=== PATIENT | male | born 1990 | race Caucasian/White ===

== ENCOUNTER 2021-12-31 09:05 | Emergency (ER) | payer OTHER, SELFPAY ==
--- NOTE | 2021-12-31 09:08 | PC.NURSE ---
pt ambulatory to ED room 8 from waiting room with registration tech; no complications.
--- NOTE | 2021-12-31 09:13 | PC.NURSE ---
UA sent to lab
--- NOTE | 2021-12-31 09:13 | PC.NURSE ---
pt ambulatory to restroom from ED room 8 to provide UA; back to ED room 8 without complications. Kathryn at BS to start line, Jaymie at BS for triage
[2021-12-31 09:14] VITALS: BP 150/86; PULSE 84; RESP 17; TEMP 36.6; O2SAT 99; BMI 29.6
[2021-12-31 09:16] LABS: Microscopic, Urine URINE MICROSCOPIC (MICROSCOPIC)
--- NOTE | 2021-12-31 09:20 | US_ITS ---
FINAL REPORT TECHNIQUE: Ultrasound images of the testicles were obtained bilaterally. Color Doppler images were obtained. CLINICAL HISTORY: r/o torsion FINDINGS: The right testicle measures 2.21 x 3.50 x 3.29 cm. The left testicle measures 2.05 x 3.58 x 3.40 cm. Arterial flow is identified bilaterally. There are small hydroceles bilaterally. There is a 2 mm cyst seen in the left epididymal head. IMPRESSION: No evidence of testicular torsion. Reviewed, Interpreted and Dictated by Rodrigo Leslie III, MD Transcribed by Michelle Herr Authenticated and . [facility]
[2021-12-31 09:21] LABS: Appearance,Urine CLEAR (Clear); Bilirubin,Urine Negative (Negative); Blood, Urine 3+ (Negative); Color,Urine YELLOW (Yellow); Glucose,Urine (UA) Negative (Negative); Ketones,Urine Negative (Negative); Leukocyte Esterase,Urine Negative (Negative); Nitrate,Urine Negative (Negative); Protein,Urine Negative (Negative); Specific Gravity, Urine 1.025 (1.005-1.030); Urobilinogen,Urine 0.2 EU/dl (0.2)
--- NOTE | 2021-12-31 09:22 | PC.NURSE ---
called rad for u/s
--- NOTE | 2021-12-31 09:25 | PC.NURSE ---
pt to US by wheelchair with patient care technician instructor
[2021-12-31 09:28] LABS: Chloride 102 mmol/L (98-107); Sodium 141 mmol/L (136-145)
--- NOTE | 2021-12-31 09:28 | HMH.EDGENADL ---
ED Disposition Clinical Impression: Right ureteral calculus, Nephrolithiasis Disposition: Home, Self-Care Condition on Discharge: Good Instructions: DI for Kidney Stones Additional Instructions: Flomax as prescribed. Dodson as needed for pain. Tylenol or ibuprofen for less severe pain. Zofran as needed for nausea. Additional instructions for KIDNEY STONE (URETERAL CALCULUS): See Dr. Luevano as soon as possible for further evaluation. Drink plenty of fluids. Strain your urine and save any stones you catch. Return immediately if you develop a fever or have uncontrollable vomiting or uncontrollable pain. Additional instructions for CONTROLLED SUBSTANCES: You have been prescribed a medication that is a controlled substance. Controlled substances include pain medications known as opiates and sedative nerve medications known as benzodiazepines. Tramadol, fioricet, and gabapentin are also controlled substances. Some common opiates include: Codeine (such as Tylenol #3) Hydrocodone (Vicodin, Lortab, Lorcet, Dodson) Oxycodone (Percocet, Percodan, Oxycodone, Oxy IR) Some common benzodiazepines include: Diazepam (Valium) Lorazepam (Ativan) Alprazolam (Xanax) Clonazepam (Klonopin) Oxazepam (Serax) All of these controlled substances are highly addictive and frequently abused. Misuse can and frequently does lead to addiction as well as overdose and . Medication should be stored in a locked cabinet or other secure storage unit. Do not store the medication in a motor vehicle. Short term supplies, 3 days or less, are prescribed because of the highly addictive nature of the medication. Any of the controlled substance medication NOT taken should be disposed of properly and NOT SAVED. The recommended method of disposing of unused medications is: Place the medicines in a sealable plastic bag. If the medicine is a solid, crush it or add water to dissolve it. Add something undesirable (cat litter, coffee grounds, etc.) Dispose of sealed bag in household trash Do not flush or pour unused medicines down a sink or drain. Controlled substances should not be shared, given away or sold. Because of the addictive nature and frequent abuse, these medications are sometimes stolen. These medications should be kept in a safe place where they cannot be stolen. Do not keep them in your car or purse. Lost or stolen prescriptions for controlled substances WILL NOT BE REFILLED in this emergency department, regardless of whether a police report was filed. Prescriptions: Hydrocod/Acet 5/325 mg [Dodson 5/325mg tablet] 1 tab PO Q6HP PRN #10 tab PRN Reason: Pain Transmission Status: Received by [facility] #[id number] Tamsulosin HCl [Flomax 0.4mg capsule] 0.4 mg PO HS #10 cap Transmission Status: Received by [facility] #[id number] Ondansetron [Zofran 4mg ODT] 4 mg PO TIDP PRN #10 tab PRN Reason: Nausea And Vomiting Transmission Status: Received by [facility] #[id number] Referrals: Ca Yi [Primary Care Provider] - Abiodun Luevano MD [Staff Physician] - - Critical Care Critical Care Time: No Attestation: On , the high probability of a clinically significant, sudden or life threatening deterioration of the following system(s) required my full and direct attention, intervention and personal management. The time I documented below is in addition to time spent performing reported procedures but includes the following listed in this critical care notation. Medical Decision Making - Alejandro Inquiry Pt receiving controlled substance: Yes Alejandro was queried for this patient: Yes Risks and benefits of using a controlled substance: were discussed with pt by me Vital Signs: 12/31/21 09:14 12/31/21 10:31 12/31/21 11:00 Temperature 98 F Temperature Source Oral Pulse Rate 68 67 Pulse Rate [Left Radial] 84 Respiratory Rate 17 Blood Pressure 114/61 120/61 Blood Pressure [Right Arm] 1
[2021-12-31 09:30] LABS: Alanine Aminotransferase 54 U/L (12-78); Alkaline Phosphatase 102 U/L (38-126); Aspartate Amino Transferase 54 U/L (17-59); Bilirubin,Total 0.7 mg/dl (0.2-1.3); Blood Urea Nitrogen 12 mg/dl (9-20); Creatinine Clearance Estimated 152 mL/min (50-200); Estimated Glomerular Filt Rate 100 ml/min (>60); GFR (African American) 121 ML/MIN (>60)
[2021-12-31 09:31] LABS: Albumin/Globulin Ratio 1.5 (1.1-1.8); Basophils # 0.2 K/mm3 (0-0.2); Basophils % 1.9 % (0.1-2.0); Calcium 10.2 mg/dl (8.4-10.2); Carbon Dioxide 32 mmol/L (22.0-30.0); Eosinophils # 0.1 K/mm3 (0.0-0.4); Eosinophils % 1.4 % (0.1-12.0); Globulin 3.3 g/dL (1.3-3.2); Glucose 102 mg/dl (74-100); Hematocrit 52.3 % (42.0-52.0); Lipase 117 U/L (23-300); Lymphocytes # 1.9 K/mm3 (0.7-4.5); Lymphocytes % 20.5 % (10-50); Mean Corpuscular HGB Conc 34.6 g/dL (31.8-35.4); Mean Corpuscular Hemoglobin 29.9 pg (27.0-31.2); Mean Corpuscular Volume 86.4 fl (80-94); Mean Platelet Volume 8.6 fl (7.4-10.4); Monocytes # 0.5 K/mm3 (0.1-1.0); Monocytes % 5.1 % (1.7-9.3); Neutrophils # 6.6 K/mm3 (1.8-7.8); Neutrophils % 71.1 % (37.0-80.0); Platelet Count 231 K/mm3 (142-424); Red Blood Count 6.05 M/mm3 (4.60-6.20); Red Cell Distribution Width 13.8 % (11.5-17.5); Total Protein,Serum 8.3 g/dl (6.3-8.2); White Blood Count 9.2 K/mm3 (4.8-10.8)
[2021-12-31 09:36] LABS: Bacteria,Urine Trace /lpf; WBC,Urine Occasional #/hpf (0-3)
[2021-12-31 09:41] LABS: Hemoglobin 18.1 g/dL (14.1-18.0)
--- NOTE | 2021-12-31 09:48 | PC.NURSE ---
pt back from US by wheelchair with crop and soil technician
--- NOTE | 2021-12-31 09:49 | PC.NURSE ---
WHITNEY STRONG at speaking with patient
--- NOTE | 2021-12-31 09:54 | CT_ITS ---
FINAL REPORT CLINICAL HISTORY: R sided abdo pain, hematuria FINDINGS: Axial CT images of the abdomen and pelvis were obtained without intravenous contrast. Coronal reformatted images were also obtained.This study was performed with techniques to keep radiation doses as low as reasonably achievable (ALARA). Individualized dose reduction techniques using automated exposure control or adjustment of mA and/or kV according to the patient's size were employed. Abdomen: The lung bases are clear. There is a single less than 3 mm nonobstructing right renal stone. The gallbladder is present. The liver, spleen and pancreas have an unremarkable, unenhanced appearance. No mass or adenopathy is seen. No inflammatory process is identified. Pelvis: The appendix appears normal. There is mild right hydronephrosis secondary to a 7 mm proximal right ureteral stone at the L4 level. No mass is identified. IMPRESSION: Single less than 3 mm nonobstructing right renal stone. Mild right hydronephrosis secondary to a 7 mm proximal right ureteral stone. Reviewed, Interpreted and Dictated by Rodrigo Leslie III, MD Transcribed by Meri Rose Authenticated and '[facility]
--- NOTE | 2021-12-31 10:00 | PC.NURSE ---
rad called for ct
--- NOTE | 2021-12-31 10:07 | PC.NURSE ---
pt to CT with soldering technician by wheelchair
[2021-12-31 10:31] VITALS: BP 114/61; PULSE 68; O2SAT 96
--- NOTE | 2021-12-31 10:47 | PC.NURSE ---
pt returned from CT
[2021-12-31 11:00] VITALS: BP 120/61; PULSE 67; O2SAT 99
--- NOTE | 2021-12-31 11:35 | PC.NURSE ---
STRAINER AND URINE CUP GIVEN INSTRUCTED ON USE
[2021-12-31 11:36] VITALS: BP 132/74; PULSE 78; RESP 16; TEMP 36.6; O2SAT 98
== END 2021-12-31 11:37 | disposition home or self-care (01) ==
PROVIDERS: Emergency Provider Emergency Medicine; PCP Pediatrics
DX: N13.2 Hydronephrosis with renal and ureteral calculous obstruction (principal); N50.811 Right testicular pain
CPT/HCPCS: 74176; 76870; 80053; 81001; 83690; 85025; 96361; 96374; 99284

== ENCOUNTER 2024-02-02 07:59 | Emergency (ER) | payer OTHER, SELFPAY ==
--- OUTSIDE RECORDS SUMMARY | 2024-02-02 08:05 | XMS_ITS | Referral Summary ---
Author Name Unknown Organization [facility] Address [address], [place] [address] Care Team Providers Care Harness Preparer Name Role Phone NO PCP, PT STATES Primary Care Physician Unavail able Encounter 02/02/22 - 02/02/22 [facility] [address] [place] [address] Encounter Diagnosis Urinary tract infection(Discharge Diagnosis) - 02/02/22 Constipation(Discharge Diagnosis) - 02/02/22 Discharge Disposition: 01-Home or Self Care Attending Physician: Dm Curtis DO Admitting Physician: Dm Curtis DO Vital Signs Most recent to oldest [Reference Range]: 1 Temperature Oral [35.8-37.3 degC] 36.6 d egC (02/02/22 10:11 PM) Peripheral Pulse Rate [60-100 bpm] 78 bp m (02/02/22 11:27 PM) Respiratory Rate [14-20 br/min] 16 br/mi n (02/02/22 11:27 PM) Blood Pressure [90-140/60-90 mmHg] 147/9 7mmHg *HI* (02/02/22 11:27 PM) SpO2 99 % (02/02/22 11:27 PM) Problem List Condition Effective Dates Status Health Status Inform ant Kidney stone(Confirmed) Active p atient Allergies, Adverse Reactions, Alerts No Known Medication Allergies Medications ibuprofen 800 mg oral tablet 800 mg 1 tabs, Oral, q8hr, as needed for pain, # 12 tabs, 0 Refill(s), Pharmacy: [facility] #[id number], 1 tabs Oral q8hr,PRN:as needed for pain Start Date: 02/02/22 Status: Ordered Keflex 500 mg oral capsule 500 mg 1 caps, Oral, q12hr, # 14 caps, 0 Refill(s), Pharmacy: [facility] #[id number], 1 caps Oral q12hr Start Date: 02/02/22 Status: Ordered MiraLax oral powder for reconstitution 17 g, Oral, Daily, dissolve in water before taking, # 527 g, 0 Refill(s), Pharmacy: [facility] #[id number] Start Date: 02/02/22 Status: Ordered nitrofurantoin macrocrystals-monohydrate 100 mg oral capsule 0 Refill(s) Start Date: 02/02/22 Status: Ordered oxybutynin 5 mg/24 hours oral tablet, extended release 0 Refill(s) Start Date: 02/02/22 Status: Ordered phenazopyridine 100 mg oral tablet 0 Refill(s) Start Date: 02/02/22 Status: Ordered tamsulosin 0.4 mg oral capsule 0 Refill(s) Start Date: 02/02/22 Status: Ordered Results Most recent to oldest [Reference Range]: 1 UA Color [Yellow] Yellow (02/02/22 10:09 PM) UA WBC [0-1 /HPF] 5-10 /HPF *ABN* (02/02/22 10:09 PM) UA Urobilinogen [0.2 mg/dL] 0.2 mg/dL (02/02/22 10:09 PM) UA Bili [Negative] Negative (02/02/22 10:09 PM) UA Ketones [Negative mg/dL] Negative mg/ dL (02/02/22 10:09 PM) UA RBC [0-1 /HPF] 5-10 /HPF *ABN* (02/02/22 10:09 PM) UA Leuk Est [Negative] Negative (02/02/22 10:09 PM) UA Nitrite [Negative] Negative (02/02/22 10:09 PM) UA Glucose [Negative mg/dL] Negative mg/ dL (02/02/22 10:09 PM) UA Bacteria [None Seen /HPF] 2+ /HPF *ABN* (02/02/22 10:09 PM) UA Protein [Negative mg/dL] 100 mg/dL *ABN* (02/02/22 10:09 PM) UA Blood [Negative] Trace-intact *ABN* (02/02/22 10:09 PM) UA Mucous [None Seen /LPF] 3+ /LPF *ABN* (02/02/22 10:09 PM) UA Spec Grav [1.000-1.029] >=1.030 *ABN* (02/02/22 10:09 PM) UA Squam Epithelial [None Seen /HPF] Rar e /HPF (02/02/22 10:09 PM) UA pH [5.0-8.0] 6.0 (02/02/22 10:09 PM) UA Appear [Clear] Clear (02/02/22 10:09 PM) Procedures Procedure Date Related Diagnosis Body Site Status Stent removal 01/27/22 Completed Stent placement 01/22/22 Completed Lithotripsy of kidney Com pleted Social History Social History Type Response Smoking Status Never (less than 100 in lifetime) entered on: 02/02/22 Functional Status FUNCTIONAL 02/02/22 Sensory Deficits None COGNITIVE 02/02/22 Level of Consciousness Alert Orientation Assessment Oriented x 4 Affect/Behavior Appropriate, Calm, Cooperative Hospital Discharge Instructions Patient Education Constipation, Adult High-Fiber Diet Urinary Tract Infection, Adult Follow Up Care 02/02/2022 22:46:19 With:[facility] Address: [address] [place] [id number] [phone] Business (1) When:1 to 2 days With:PT STATES NO PCP Address:Unknown When:1 to 2 days
[2024-02-02 08:10] VITALS: BP 129/78; PULSE 67; RESP 20; TEMP 36.7; O2SAT 97; BMI 33.2
--- NOTE | 2024-02-02 08:29 | EXP.UTC ---
Discharge Plan Disposition Patient Disposition: Home, Self-Care Condition: Good Prescriptions Prescriptions: New oewfiefxyfrmihj-vtvrqeovh-IL [Bromfed DM] 2-30-10 mg/5 mL Syrup 5 ml PO Q6H PRN (Reason: Cough) Qty: 240 0RF ondansetron 4 mg Tablet,Disintegrating 4 mg PO Q8H PRN (Reason: Nausea) Qty: 12 0RF Referrals Follow up/Referrals: Kiya West MD [Primary Care Provider] - See instructions Activity Restrictions/Add. Instructions Additional Instructions/Restrictions: Drink plenty of fluids. Take tylenol or ibuprofen for pain or fever. Take the medications as directed. Follow up with your regular doctor. GO TO THE ER FOR ANY WORSENING SYMPTOMS Clinical Impressions Clinical Impression: Acute viral syndrome, Exposure to 2019 novel coronavirus Stand Alone Forms Stand Alone Forms: Work/School Release Instructions Patient Instructions: Coronavirus Disease 2019, Preventing the Spread of Coronavirus Discharge Instructions Discharge ED Provider: Maico Rivera [facility] General Stated complaint: cough, sore throat Mode of Arrival: Ambulatory Source of Information: Patient Limitations: No Limitations Time Seen by Provider: 02/02/24 08:29 Description of Symptoms (Recalled from Triage Doc. by RN): PATIENT C/O SORE THROAT THAT STARTED YESTERDAY. HE REPORTS RECENTLY BEING EXPOSED TO COVID. HEENT Symptoms (Recalled from RN notes): Yes Resp Symptoms (Recalled from RN notes): No Skin Symptoms (Recalled from RN notes): No MS Symptoms (Recalled from RN notes): No Functional Status (Recalled from RN notes): wnl History of Present Illness Provider Complaint: He states that for the past 2 days he has had sore throat, low grade fever and malaise. His has covid-19. Related Data Previous Rx's Medication Instructions Recorded zpvomipqimuehqg-kgdghascbdratye-ZP 5 ml PO Q6H PRN Cough #240 mL 02/02/24 2 mg-30 mg-10 mg/5 mL oral syrup (Bromfed DM) ondansetron 4 mg disintegrating 4 mg PO Q8H PRN Nausea #12 tabs 02/02/24 tablet Allergies Allergy/AdvReac Type Severity Reaction Status Date / Time No Known Allergies Allergy Verified 12/31/21 09:19 Worker's Comp Is this a Worker's Comp case?: No [facility] Disclaimer: The information contained in this section may have been updated after the patient was seen, as this information can be updated by other users. Medical History (Updated 02/02/24 @ 08:53 by Maico Rivera APRN) Kidney stone Surgical History (Updated 02/02/24 @ 08:27 by Nohemi Taylor RN) History of tympanostomy tube placement History of tonsillectomy Social History Smoking Status: Never smoker alcohol intake: never current occupational status: employed Travel in the last 8 weeks: None ROS Obtained: Yes All systems reviewed & no additional complaints except as documented Constitutional Constitutional: Reports chills and Reports fever(s) Eyes Eyes: Denies eye discharge ENT Ears, Nose, Mouth, and Throat: Reports as per HPI Cardiovascular Cardiovascular: Denies chest pain Respiratory Respiratory: Denies chest congestion and Reports cough Gastrointestinal Gastrointestingal: Reports nausea; Denies abdominal pain, constipation, cramping, diarrhea or vomiting Musculoskeletal Musculoskeletal: Denies arthralgias Integumentary/Breasts Skin/Breast: Denies rash Neurologic Neurologic: Denies paresthesias Physical Exam General General appearance: alert and in no apparent distress Eye Eye exam: Present normal appearance, PERRL and EOMI ENT ENT exam: Present mucous membranes moist and normal external ear exam Expanded ENT Exam External ear exam: Present normal external inspection TM/Canal exam: Bilateral TM: erythema and bulging Nose exam: Absent sinus tenderness Nasal speculum exam: Bilateral: normal Mouth exam: Present normal external inspection; Absent drooling Teeth exam: Present normal inspection Throat exam: Present tonsillar erythema and tonsillomegaly Neck Neck exam: Present normal inspection, full ROM and trachea midline; Absent tenderness, lymphadenopathy or thyromegaly Chest Chest inspection: Present normal inspection and symmetric chest wall rise; Absent tenderness or rash Respiratory Respiratory exam: Present normal lung sounds bilaterally; Absent respiratory distress, wheezes, stridor or accessory muscle use Cardiovascular Cardiovascular exam: Present regular rate, normal rhythm and normal heart sounds Abdominal Exam Abdominal exam: Present soft; Absent distention, tenderness, guarding, rebound or rigidity Extremities Exam Extremities exam: Present normal inspection, full ROM and normal capillary refill; Absent tenderness or calf tenderness Back Exam Back exam: Present normal inspection and full ROM; Absent tenderness Neurological Exam Neurological exam: Present alert and oriented X3 Psychiatric Psychiatric exam: Present normal affect and normal mood Skin Skin exam: Present warm, dry, intact and normal color Lymphatic Lymphatic Findings: no adenopathy Medical Decision Making Medical Records Medical records reviewed: No I reviewed the patient's medical records. Alejandro Inquiry Pt receiving controlled substance: No Vital Signs: 02/02/24 08:10 Temperature 98.1 F Temperature Source Oral Pulse Rate [Left Brachial] 67 Respiratory Rate 20 Blood Pressure [Left Arm] 129/78 Blood Pressure Mean [Left Arm] 95 Blood Pressure Source [Left Arm] Automatic Cuff Blood Pressure Position [Left Arm] Sitting 02 Sat by Pulse Oximetry 97 Oxygen Delivery Method Room Air Lab Data Lab results reviewed: Yes I reviewed the patient's lab results. Orders (Tests/Meds): ORDERS Category Date Time Status Covid-19 Nasal PCR ([facility]) Routine Lab 02/02/24 08:24 Ordered
[2024-02-02 08:31] LABS: UTC Strep Screen (Rapid) Negative (Negative)
[2024-02-02 08:54] VITALS: BP 129/78; PULSE 67; RESP 20; TEMP 36.7; O2SAT 97
== END 2024-02-02 08:58 | disposition home or self-care (01) ==
PROVIDERS: Emergency Provider Nurse Practitioner Family; PCP Internal Medicine
DX: U07.1 COVID-19 (principal); R50.9 Fever, unspecified; R07.0 Pain in throat; R53.83 Other fatigue; R05.9 Cough, unspecified
CPT/HCPCS: 87635; 87880; 99204; 99212; G0463

== ENCOUNTER 2024-04-24 15:04 | Emergency (ER) | payer OTHER, SELFPAY ==
[2024-04-24 15:19] VITALS: BP 132/82; PULSE 97; RESP 16; TEMP 36.9; O2SAT 98; BMI 29.7
--- NOTE | 2024-04-24 15:22 | ED_ITS ---
Discharge Plan Disposition Patient Disposition: Home, Self-Care Condition: Good Prescriptions Prescriptions: New amoxicillin 500 mg capsule 500 mg PO BID 10 Days Qty: 20 0RF No Action nhnrhgiyqweoeac-jgooklsww-KL [Bromfed DM] 2-30-10 mg/5 mL Syrup 5 ml PO Q6H PRN (Reason: Cough) Qty: 240 0RF ondansetron 4 mg Tablet,Disintegrating 4 mg PO Q8H PRN (Reason: Nausea) Qty: 12 0RF Referrals Follow up/Referrals: Kiya West MD [Primary Care Provider] - See instructions Activity Restrictions/Add. Instructions Additional Instructions/Restrictions: *Monitor Temp, Over the counter Motrin or Tylenol as directed/as needed Tylenol every 4 hours and Motrin every 6 hours (as long as your family doctor has told you that you can take it) for fever or pain. and straight to ER if unable to lower temp less than 101.0 after medication given *Warm salt water gargles may help to soothe the throat *Throat Lozenges? *Warm fluids like tea with honey may help to soothe the throat? *Sleep elevated *Humidifier/Vaporizer *If you did not take Penicillin shot or was unable to, start taking antibiotic immediately and make sure that you take it for the FULL length of time although you should start to feel better in 24-48 hours *change toothbrush and toothpaste 24-48 hours after starting to take antibiotics so you do not reinfect yourself Monitor Temp. Tylenol and/or Ibuprofen as needed. ER if fever is no less than 101 despite alternating Tylenol and Ibuprofen * Encourage fluids, water, Gatorade, powerade, pedialyte if infant/toddler/or child *Cold fluids, popsicles and ice cream may feel good on his throat Follow up IMMEDIATELY for new or worsening symptoms or no Noticeable improvement over the next 48-72 hours. 911 for difficulty breathing or swallowing Clinical Impressions Clinical Impression: Strep throat Instructions Patient Instructions: DI for Strep Throat, Strep Throat Print Language Print Language: Vietnamese Discharge ED Provider: Stella Valentin [facility] HPI General Stated complaint: sore throat, hiral Mode of Arrival: Ambulatory Source of Information: Patient Limitations: No Limitations Time Seen by Provider: 04/24/24 15:22 Description of Symptoms (Recalled from Triage Doc. by RN): Patient reports sore throat, congestion and body aches. HEENT Symptoms (Recalled from RN notes): Yes Resp Symptoms (Recalled from RN notes): No Skin Symptoms (Recalled from RN notes): No MS Symptoms (Recalled from RN notes): No Functional Status (Recalled from RN notes): wnl History of Present Illness Provider Complaint: Patient states that he was recently exposed to strep throat States that he has been having sore throat, feeling achy and nasal congestion states today his throat was bothering him worse so he came in to get checked Related Data Previous Rx's ?Medication ?Instructions ?Recorded gspubttfwfmffhd-xokocoqkgqlgolx-IX 5 ml PO Q6H PRN Cough #240 mL 02/02/24 2 mg-30 mg-10 mg/5 mL oral syrup (Bromfed DM) ondansetron 4 mg disintegrating 4 mg PO Q8H PRN Nausea #12 tabs 02/02/24 tablet amoxicillin 500 mg capsule 500 mg PO BID 10 days #20 caps 04/24/24 Allergies Allergy/AdvReac Type Severity Reaction Status Date / Time No Known Allergies Allergy Verified 12/31/21 09:19 Worker's Comp Is this a Worker's Comp case?: No [facility] Disclaimer: The information contained in this section may have been updated after the patient was seen, as this information can be updated by other users. Medical History (Updated 04/24/24 @ 15:25 by Stella Valentin APRN) Kidney stone Surgical History (Updated 02/02/24 @ 08:27 by Nohemi Taylor RN) History of tympanostomy tube placement History of tonsillectomy Social History (Updated 02/02/24 @ 09:25 by Maico Rivera APRN) Smoking Status: Never smoker alcohol intake: never current occupational status: employed Travel in the last 8 weeks: None ROS Obtained: Yes All systems reviewed & no additional complaints except as documented and Yes Systems reviewed as appropriate & no additional complaints except as documented Constitutional Constitutional: Reports system reviewed and no additional complaints, except as documented, Reports as per HPI and Reports body ache ENT Ears, Nose, Mouth, and Throat: Reports system reviewed and no additional complaints, except as documented, Reports as per HPI, Reports nasal congestion, Reports nasal discharge and Reports sore throat Cardiovascular Cardiovascular: Reports system reviewed and no additional complaints, except as documented and Reports as per HPI Respiratory Respiratory: Reports system reviewed and no additional complaints, except as documented and Reports as per HPI Gastrointestinal Gastrointestingal: Reports system reviewed and no additional complaints, except as documented and as per HPI Musculoskeletal Musculoskeletal: Reports system reviewed and no additional complaints, except as documented and Reports as per HPI Physical Exam General General appearance: alert and in no apparent distress ENT ENT exam: Present mucous membranes moist Expanded ENT Exam Throat exam: Present other (Pharyngeal erythema noted ) Respiratory Respiratory exam: Present normal lung sounds bilaterally; Absent respiratory distress or wheezes Cardiovascular Cardiovascular exam: Present regular rate, normal rhythm and normal heart sounds Neurological Exam Neurological exam: Present alert, oriented X3 and normal gait Medical Decision Making Medical Records Screening: Per USPSTF and CDC recommendations, given the prevalence of disease in our region, it is our hospital?s policy to screen for HIV and viral Hepatitis for all patients aged 18 and over and those with ongoing risk factors. Alejandro Inquiry Pt receiving controlled substance: No Alejandro was queried for this patient: No Vital Signs: 04/24/24 15:19 Temperature 98.4 F Temperature Source Oral Pulse Rate [Radial] 97 H Respiratory Rate 16 Blood Pressure [Right Arm] 132/82 Blood Pressure Mean [Right Arm] 98 Blood Pressure Source [Right Arm] Automatic Cuff Blood Pressure Position [Right Arm] Sitting 02 Sat by Pulse Oximetry 98 Oxygen Delivery Method Room Air Lab Data Lab results reviewed: Yes I reviewed the patient's lab results.
[2024-04-24 15:23] LABS: UTC Strep Screen (Rapid) Positive (Negative)
[2024-04-24 15:28] VITALS: BP 132/82; PULSE 97; RESP 16; TEMP 36.9; O2SAT 98
== END 2024-04-24 15:30 | disposition home or self-care (01) ==
PROVIDERS: Emergency Provider Nurse Practitioner; PCP Internal Medicine
DX: J02.0 Streptococcal pharyngitis (principal)
CPT/HCPCS: 87880; 99213; G0381

== ENCOUNTER 2024-09-30 07:00 | Emergency (ER) | payer OTHER, SELFPAY ==
[2024-09-30] VITALS (8 sets, daily range): BP systolic 90–136; BP diastolic 45–89; PULSE 62–90; RESP 16–18; TEMP 36.6–37.1; O2SAT 96–100; BMI 32.1
--- NOTE | 2024-09-30 07:31 | XR_ITS ---
PROCEDURE INFORMATION: Exam: XR Left Hip Exam date and time: 09/30/2024 8:00 AM Age: 34 years old Clinical indication: Hip pain; Left hip; Additional info: Hip pain, no known trauma, recent chiropractor appointment for hip adjustment last week TECHNIQUE: Imaging protocol: Radiologic exam of the left hip. Views: 2 or 3 views hip with pelvis when performed. COMPARISON: No relevant prior studies available. FINDINGS: Bones/joints: Subchondral cyst formation in the lateral left acetabulum. This may indicate degenerative changes. Pathologic fracture through the subchondral cyst can not be ruled out. If this is suspected, recommend CT. No femoral neck fracture.. Soft tissues: Unremarkable. IMPRESSION: 1. Subchondral cyst formation in the lateral left acetabulum. This may indicate degenerative changes. Pathologic fracture through the subchondral cyst can not be ruled out. If this is suspected, recommend CT. 2. No femoral neck fracture..
--- NOTE | 2024-09-30 07:31 | XR_ITS ---
PROCEDURE INFORMATION: Exam: XR Left Knee Exam date and time: 09/30/2024 8:03 AM Age: 34 years old Clinical indication: Pain; Hip; Left; Additional info: Hip pain TECHNIQUE: Imaging protocol: Radiologic exam of the left knee. Views: 3 views. COMPARISON: CR XR FEMUR LT 2V 09/30/2024 8:01 AM FINDINGS: Bones/joints: Joint space narrowing in the patellofemoral joint may indicate early degenerative changes. There is no evidence of acute fracture.There is no evidence of malalignment or dislocation. Well corticated ossific fragment in the region of the tibial tubercle may represent unhealed avulsion fracture Soft tissues: Normal. IMPRESSION: 1. Joint space narrowing in the patellofemoral joint may indicate early degenerative changes. 2. There is no evidence of acute fracture.There is no evidence of malalignment or dislocation.
--- NOTE | 2024-09-30 07:31 | XR_ITS ---
PROCEDURE INFORMATION: Exam: XR Left Femur Exam date and time: 09/30/2024 8:01 AM Age: 34 years old Clinical indication: Pain; Hip; Left; Additional info: Hip pain TECHNIQUE: Imaging protocol: Radiologic exam of the left femur. Views: 2 views. COMPARISON: CR XR FEMUR LT 2V 09/30/2024 8:01 AM FINDINGS: Bones/joints: Subchondral cyst formation in the lateral aspect of the left acetabulum. If a pathologic fracture is suspected through this lesion, recommend CT. Soft tissues: Unremarkable. IMPRESSION: Subchondral cyst formation in the lateral aspect of the left acetabulum. If a pathologic fracture is suspected through this lesion, recommend CT.
[2024-09-30] MEDS: diazePAM 5MG TABLET 5 MG PO (07:49)
[2024-09-30] MEDS: DEXAMETHASONE 4MG/ML 1ML VIAL 10 MG IM (07:56)
--- NOTE | 2024-09-30 08:08 | HMH.EDGENADL ---
Discharge Plan Disposition Patient Disposition: Home, Self-Care Condition: Good Prescriptions Prescriptions: New hydrocodone-acetaminophen 5-325 mg tablet 1 tab PO Q8H PRN (Reason: pain) Qty: 12 0RF No Action amoxicillin 500 mg capsule 500 mg PO BID 10 Days Qty: 20 0RF [id number]-[id number] [Bromfed DM] 2-30-10 mg/5 mL Syrup 5 ml PO Q6H PRN (Reason: Cough) Qty: 240 0RF ondansetron 4 mg Tablet,Disintegrating 4 mg PO Q8H PRN (Reason: Nausea) Qty: 12 0RF Referrals Follow up/Referrals: Kiya West MD [Primary Care Provider] - See instructions Flavio Matute DO [Staff Physician] - See instructions Activity Restrictions/Add. Instructions Additional Instructions/Restrictions: You were evaluated in the emergency department today. Your CT scan demonstrates a possible fracture through the acetabulum. I recommend limited weightbearing using crutches to offload weight from your left leg for the next 6 to 8 weeks or until you are instructed otherwise by orthopedics. [employer]atto[employer] supervisor your prescription for pain medication and take as needed for severe pain. It contains acetaminophen, so make sure you are not taking additional Tylenol with this. If you can get by without this medication, take Tylenol and ibuprofen every 4-6 hours as needed instead. Return to the emergency department for new or worsening symptoms. Clinical Impressions Clinical Impression: Closed fracture of anterior column of acetabulum, Subchondral bone cyst Stand Alone Forms Stand Alone Forms: Work/School Release Instructions Patient Instructions: DI for Pelvic Fracture Print Language Print Language: Hungarian Discharge ED Provider: Abbey Kyle General Adult HPI General Chief complaint: PAIN Stated complaint: L hip pain Time Seen by Provider: 09/30/24 07:29 Mode of Arrival: Ambulatory Source of Information: Patient Description of Symptoms (Recalled from ER Triage Doc. by RN): pt presents to ED with c/o left hip pain. pt went to chiropractor last week, had hip adjustments. left hip pain worsening over the past three days. History of Present Illness HPI narrative: This patient is a 34-year-old male who denies significant past medical history presenting to the emergency department for evaluation with concern for left hip pain. Patient states that he has pain deep within his left hip joint that is always present at rest, but way worse with movement. He notes this been going on for 5 or 6 days and so he saw a chiropractor, but now the pain is much worse after treatment. He notes that he was unable to sleep or even get up out of bed, having to roll out of bed instead of getting up to stand. He denies any radiation of pain. He also denies any fevers, chills, abdominal pain, nausea, vomiting, changes in bowel movements, urinary symptoms, or other concerns. No numbness or tingling, no calf pain/swelling. He notes that he had been going to the gym but stopped once he started having this pain. He cannot think of any specific inciting injuries. Related Data Previous Rx's ?Medication ?Instructions ?Recorded [id number]-nuwqdwptdzakfcf-RP 5 ml PO Q6H PRN Cough #240 mL 02/02/24 2 mg-30 mg-10 mg/5 mL oral syrup (Bromfed DM) ondansetron 4 mg disintegrating 4 mg PO Q8H PRN Nausea #12 tabs 02/02/24 tablet amoxicillin 500 mg capsule 500 mg PO BID 10 days #20 caps 04/24/24 hydrocodone 5 mg-acetaminophen 325 1 tab PO Q8H PRN pain #12 tabs 09/30/ mg tablet Allergies Allergy/AdvReac Type Severity Reaction Status Date / Time No Known Allergies Allergy Verified 12/31/21 09:19 [facility] Disclaimer: The information contained in this section may have been updated after the patient was seen, as this information can be updated by other users. Medical History Kidney stone Surgical History History of tympanostomy tube placement History of tonsillectomy Social History Smoking Status: Never smoker alcohol intake: never current occupational status: employed Travel in the last 8 weeks: None Have you lived/traveled outside [place] in past 30 days?: No Contact w/someone who lives/traveled outside US past 30 days?: No Exposure to someone with infectious disease in past 14 days?: No Do you have a fever (greater than 100.4 F or 38 C)?: No Have you tested positive for COVID-19: No Exposed to someone with COVID-19 in past 14 days?: No Do you have a sore throat?: No Do you have a cough?: No Do you have any weakness?: No Do you have any diarrhea?: No Are you experiencing any unusual bleeding?: No Do you have any muscle aches/pain?: No Do you have any abdominal pain?: No Are you experiencing loss of taste or smell?: No Other Medical History Have you received the Flu Vaccine for this season: Yes Have you received the Pneumonia Vaccine: No ROS Obtained: Yes All systems reviewed & no additional complaints except as documented Physical Exam General General appearance: alert and in no apparent distress Head Head exam: atraumatic and normocephalic Eye Eye exam: Present normal appearance, PERRL and EOMI ENT ENT exam: Present normal exam, normal oropharynx, mucous membranes moist and normal external ear exam Neck Neck exam: Present normal inspection, full ROM and trachea midline; Absent tenderness Chest Chest inspection: Present normal inspection and symmetric chest wall rise; Absent tenderness Respiratory Respiratory exam: Present normal lung sounds bilaterally; Absent respiratory distress, wheezes, stridor or accessory muscle use Cardiovascular Cardiovascular exam: Present regular rate and normal rhythm Abdominal Exam Abdominal exam: Present soft; Absent distention, tenderness, guarding, rebound or rigidity Extremities Exam Extremities exam: Present normal capillary refill and other (Pain with range of motion of the left hip joint. No superficial tenderness to palpation, he states the pain is deeper within his joint. Neurovascularly intact distally with no significant swelling of the left lower extremity.); Absent full ROM or edema Back Exam Back exam: Present normal inspection and full ROM; Absent tenderness Neurological Exam Neurological exam: Present alert, oriented X3, CN II-XII intact and normal gait; Absent motor sensory deficit Psychiatric Psychiatric exam: Present normal affect and normal mood Skin Skin exam: Present warm and dry Medical Decision Making Medical Records Medical records reviewed: Yes I reviewed the patient's medical records. Screening: Per USPSTF and CDC recommendations, given the prevalence of disease in our region, it is our hospital?s policy to screen for HIV and viral Hepatitis for all patients aged 18 and over and those with ongoing risk factors. Alejandro Inquiry Pt receiving controlled substance: Yes Alejandro was queried for this patient: Yes Risks and benefits of using a controlled substance: were discussed with pt by me Vital Signs: 09/30/24 07:08 09/30/24 07:31 09/30/24 07:36 Temperature 98.7 F Temperature Source Oral Pulse Rate 90 82 Pulse Rate [Left Radial] 87 Respiratory Rate 16 Blood Pressure 136/89 124/78 Blood Pressure [Right Arm] 136/89 Blood Pressure Mean Blood Pressure Mean [Right Arm] 104 Blood Pressure Source [Right Arm] Automatic Cuff Blood Pressure Position [Right Arm] Supine 02 Sat by Pulse Oximetry 98 97 98 Oxygen Delivery Method Room Air 09/30/24 08:30 09/30/24 08:44 09/30/24 09:30 Temperature Temperature Source Pulse Rate 78 82 62 Pulse Rate [Left Radial] Respiratory Rate Blood Pressure 106/56 L 111/64 90/45 L Blood Pressure [Right Arm] Blood Pressure Mean 60 Blood Pressure Mean [Right Arm] Blood Pressure Source [Right Arm] Blood Pressure Position [Right Arm] 02 Sat by Pulse Oximetry 98 96 98 Oxygen Delivery Method Room Air Room Air Room Air 09/30/24 10:18 09/30/24 11:37 Temperature 97.9 F Temperature Source Oral Pulse Rate 71 88 Pulse Rate [Left Radial] Respiratory Rate 18 Blood Pressure 110/72 132/84 Blood Pressure [Right Arm] Blood Pressure Mean Blood Pressure Mean [Right Arm] Blood Pressure Source [Right Arm] Blood Pressure Position [Right Arm] 02 Sat by Pulse Oximetry 97 Oxygen Delivery Method Lab Data Lab results reviewed: Yes I reviewed the patient's lab results. Orders (Tests/Meds): ED MEDICATIONS Discontinued Medications Generic Name Dose Route Start Last Admin Trade Name Freq PRN Reason Stop Dose Admin Dexamethasone Sodium Phosphate 10 mg 09/30/24 07:30 09/30/24 07:56 Dexamethasone 4mg/Ml 1ml Vial IM 09/30/24 07:31 10 mg ONCE ONE Administration Diazepam 5 mg 09/30/24 07:30 09/30/24 07:49 Diazepam 5mg Tablet PO 09/30/24 07:31 5 mg ONCE ONE Administration ORDERS Category Date Time Status CT bony pelvis Stat Cat Scan 09/30/24 10:[address] femur LT wo con Stat Cat Scan 09/30/24 10:13 Completed Femur XR left 2 views [XR femur LT 2V] Stat Exams 09/30/24 07:31 Completed Hip XR left minimum 2 views [XR hip LT 2-3V w/pelvis] Exams 09/30/24 07:31 Completed Stat Knee XR left 3 views [XR knee LT 3V] Stat Exams 09/30/24 07:31 Completed Medical Decision Narrative: In summary, this patient is a 34-year-old male presenting to the Emergency Department for evaluation of left hip pain. Differential diagnoses considered include but are not limited to avascular necrosis, fracture, musculoskeletal strain/sprain, psoas syndrome, intra-abdominal pathology such as diverticulitis. Ruling out the most morbid conditions drove assessment. On exam, the patient is lying in bed in no acute distress. Abdominal exam is completely benign with no tenderness, rebound, or guarding. He has no complaints of abdominal pain. He has pain with range of motion of the left hip that is worse with ambulating and weightbearing, so feels likely musculoskeletal in nature. He is neurovascularly intact distally with no significant swelling of the left lower extremity. No physical signs of DVT and no known risk factors for DVT. Patient is already taken Tylenol and ibuprofen at home without good improvement. He also has been using Lidoderm patches. Workup included x-rays of the left hip/pelvis, femur, knee. He was given oral Valium and IM dexamethasone for symptomatic improvement of pain. I independently interpreted CT scan prior to the radiologist read and noted lucency in the acetabulum. Please see their read for final interpretation. Radiology noted that this is a subchondral cyst and there could be a pathologic fracture through the cyst, they recommended CT. Given this, ordered CT bony pelvis and CT of the left femur without contrast. I independently interpreted CT scan prior to radiology read and noted no obvious displaced fracture but I do see the cystic lesions. They noted concern for possible linear lucency through this eccentrically lesion that could be a pathologic fracture. Given the patient's pain, will elect to treat it as a fracture. He was given crutches, instructions for protected weightbearing, and instructions for close follow-up with orthopedics. I did give him a prescription for [place] given the fracture and instructions for safe use. Strict return precautions were given Critical Care Critical Care Time Critical Care Time: No
--- NOTE | 2024-09-30 10:12 | CT_ITS ---
PROCEDURE INFORMATION: Exam: CT Pelvis Without Contrast, Skeleton Exam date and time: 09/30/2024 10:22 AM Age: 34 years old Clinical indication: Hip pain; Left hip; Additional info: Pain L hip, difficulty walking, abnormal XR TECHNIQUE: Imaging protocol: Computed tomography of the pelvis without contrast. Exam focused on the skeleton. Radiation optimization: All CT scans at this facility use at least one of these dose optimization techniques: automated exposure control; mA and/or kV adjustment per patient size (includes targeted exams where dose is matched to clinical indication); or iterative reconstruction. COMPARISON: CT ABDOMEN PELVIS WO CON 12/31/2021 10:06 AM FINDINGS: Bones/joints: Subchondral cyst formation in the left acetabulum consistent with degenerative changes.. Subtle lucency through the anterior aspect of the acetabulum series 3, image 69 and 70 may represent nondisplaced fracture. Soft tissues: Unremarkable. IMPRESSION: 1. Subchondral cyst formation in the left acetabulum consistent with degenerative changes.. 2. Subtle lucency through the anterior aspect of the acetabulum series 3, image 69 and 70 may represent nondisplaced fracture.
--- NOTE | 2024-09-30 10:13 | CT_ITS ---
PROCEDURE INFORMATION: Exam: CT Left Lower Extremity, Thigh Exam date and time: 09/30/2024 10:25 AM Age: 34 years old Clinical indication: Pain; Hip; Left; Additional info: Pain L hip, difficulty walking, abnormal XR TECHNIQUE: Imaging protocol: CT of the left lower extremity without contrast was performed. Exam focused on the thigh. Radiation optimization: All CT scans at this facility use at least one of these dose optimization techniques: automated exposure control; mA and/or kV adjustment per patient size (includes targeted exams where dose is matched to clinical indication); or iterative reconstruction. COMPARISON: CR XR FEMUR LT 2V 09/30/2024 8:01 AM FINDINGS: Bones/joints: There are multiple cystic structures in the lateral aspect of the left acetabulum series 4 image 8 -11.. Lucency involving the anterior acetabulum (series 4, image 16) may represent nondisplaced fracture.. Soft tissues: Normal. IMPRESSION: 1. There are multiple cystic structures in the lateral aspect of the left acetabulum series 4 image 8 -11.. 2. Lucency involving the anterior acetabulum (series 4, image 16) may represent nondisplaced fracture..
== END 2024-09-30 11:39 | disposition home or self-care (01) ==
PROVIDERS: Emergency Provider Emergency Medicine; PCP Internal Medicine
DX: M85.652 Other cyst of bone, left thigh (principal); S32.432A Displaced fracture of anterior column [iliopubic] of left acetabulum, initial encounter for closed fracture; M25.552 Pain in left hip; X58.XXXA Exposure to other specified factors, initial encounter; Y93.9 Activity, unspecified; Y92.9 Unspecified place or not applicable
CPT/HCPCS: 72192; 73502; 73552; 73562; 73700; 96372; 99284; J1100

== ENCOUNTER 2024-10-13 16:56 | Outpatient (CLI) | payer OTHER, SELFPAY ==
--- NOTE | 2024-10-13 17:00 | MR_ITS ---
FINAL REPORT CLINICAL HISTORY: Lt Hip Pain pain with bearing weight no known injury x 1 month COMPARISON: None FINDINGS: MR LEFT HIP TECHNIQUE: Multiplanar MR without gadolinium enhancement. FINDINGS: ARTICULAR CARTILAGE: There is thinning of the articular cartilage involving the femoral head and acetabulum. MARROW SIGNAL: There are cystic changes in the acetabular roof consistent with osteoarthritic disease. LABRUM: There is a probable tear of the lateral labrum, however the large orqhc-et-shtr imaging performed limits assessment of the labrum on coronal images. JOINT FLUID: A small joint effusion is present without evidence of a loose body. ADJACENT SOFT TISSUES: Unremarkable. IMPRESSION: Probable tear of the lateral labrum, however the large [id number] images limits assessment of the labrum on coronal imaging. Would consider MR arthrogram with small [id number] images of the left hip for further evaluation. Cystic changes in the acetabular roof, consistent with osteoarthritic disease. Reviewed, Interpreted and Dictated by Erin Arshad MD Transcribed by Alessia Pan Authenticated and [facility]
== END 2024-10-13 23:59 | disposition home or self-care (01) ==
LOC: RAD 16:56
PROVIDERS: Visit Provider Physician Assistant
DX: M25.552 Pain in left hip (principal)
CPT/HCPCS: 73721